=== PATIENT | female | born 1990 | race Asian ===

== ENCOUNTER 2024-07-24 14:28 | Inpatient (IN) ==
[2024-07-24] MEDS ORDERED: LIDOCAINE 1% LOCAL 20 ML VIAL INFIL PRN (17:45)
[2024-07-24] MEDS ORDERED: ACETAMINOPHEN 500 MG TAB PO PRN (17:45)
[2024-07-24] MEDS ORDERED: CALCIUM CARBONATE 500 MG CHEWABLE TAB PO PRN (17:45)
[2024-07-24] MEDS ORDERED: OXYTOCIN 30 UNITS/NSS 30 UNITS/500 ML BAG IV PRN (17:45)
[2024-07-24] MEDS: LACTATED RINGER'S 1,000 ML IV PRN (18:01)
[2024-07-24] MEDS: BUTORPHANOL TARTRATE 1 MG/ML VIAL IV ONE (18:04)
[2024-07-24 18:26] LABS: Hematocrit (blood only) 33.8 % (37.0-47.0); Hemoglobin 11.6 g/dl (12.0-16.0); Mean Corpuscular Hemoglobin 31.1 pg (25.0-34.0); Mean Corpuscular Hgb Conc 34.3 g/dL (32.0-36.0); Mean Corpuscular Volume 90.6 fL (80.0-100.0); Mean Platelet Volume 10.4 fL (9.4-12.4); Platelet Count 206 K/uL (130-400); RDW Coefficient of Variation 12.5 % (11.5-14.5); RDW Standard Deviation 41.5 fL (36.4-46.3); Red Blood Count 3.73 M/uL (4.20-5.40); White Blood Count 9.96 K/ul (4.8-10.8)
--- NOTE | 2024-07-24 19:17 | History & Physical Report ---
Date of Service July 24, 2024 Assessment & Plan (1) Gestational diabetes: Plan: Nena is a 34-year-old G1, P0 currently at 39 weeks 2 days gestational age presents in labor. 1. Fetus: Category 1 tracing 2. Labor: Progressing spontaneously. Will continue to monitor and will plan for AROM following epidural additional augmentation as needed 3. Vitals within normal limits 4. GBS negative 5. A1 GDM: Blood sugar normal on admission. (2) Supervision of normal first : (3) Active labor: History of Present Illness Primary Care Provider: Ngozi Álvarez MD Nena is a 34-year-old G1, P0 currently at 39 weeks 2 days gestational age presents in early labor. Has noted slow cervical change since early this morning. Has had her cervix checked on several occasions has gone from 2 to 4 cm. Denying leakage of fluid or vaginal bleeding and noting good movement. complicated by diet-controlled gestational diabetes with most recent growth ultrasound showing EFW of the 32nd percentile, AC 20th percentile. Allergies Allergy/AdvReac Type Severity Reaction Status Date / Time house dust Allergy Sneezing Verified 07/24/24 14:52 house dust mite Allergy Sneezing Verified 07/24/24 14:52 Home Medications Medication Instructions Recorded Confirmed Type 21-iron fu-folic acid 1 tab PO DAILY 12/10/23 07/24/24 History [ Complete] breast pump #1 ea 05/08/24 07/24/24 Rx acetone (urine) test (Ketone Urine #50 ea 06/06/24 07/24/24 Rx Test strips) blood sugar diagnostic (OneTouch #150 ea 06/06/24 07/24/24 Rx Verio test strips) blood-glucose meter (OneTouch #1 ea 06/06/24 07/24/24 Rx Verio Reflect Meter) lancets 33 gauge (OneTouch Delica #150 ea 06/06/24 07/24/24 Rx Plus Lancet) Patient History Medical History Varicella vaccination Allergic rhinitis Family history of diabetes mellitus (DM) Surgical History No history of previous surgery Family History Father Diabetes Hypertension Brother Hypertension Denies family history of Ovarian cancer Prostate cancer Myocardial infarction Breast cancer Colorectal cancer Social History (Updated 12/10/23 @ 14:10 by Claudette Catalan) Smoking Status: Never smoker Second Hand Exposure: Yes; Do You Dip or Chew Tobacco: No; Hx Alcohol Use: Yes Hx Substance Use: No Preferred Language: Tajik Communication Ability: Effective 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 Beliefs That Will Affect Care: None marital status: marital status details: Sherry Laws (31) [phone] Current Living Situation: Spouse Current Living Situation Comment: lives with spouse, no pets current occupational status: unemployed How many Children do You have: 0 Other Information That Helps Us Care for You: No Feels Safe at Home: Yes Safety Concerns: Feels Safe At This Time Childhood Exposure to Second-Hand Smoke: Yes Diet: regular caffeine: Yes Dental Care, Regularly: Yes Physical Activity Frequency: Daily Seatbelt Use: always Sunscreen Use: Yes Assistive Devices: None Physical Exam Genitourinary: OB Exam Abdomen: + vertex OB Exam Monitor Tracing: + external FHT monitor used, + external uterine monitor used, + category I and + normal FHT variability Progressed from 2 cm to 4 cm Results & Data Vital Signs (Past 12 Hours) Vital Signs Temp Pulse Resp BP 07/24/24 16:53 36.6 C 85 20 111/68 07/24/24 14:50 36.8 C 88 20 109/67 Code Status & VTE Plan VTE Prophylaxis Plan VTE Prophylaxis will be ordered: No Coding Level of Care Code None Diagnoses Diet controlled gestational diabetes mellitus (GDM) in third trimester O24.410 Gestational diabetes mellitus control: diet-controlled Trimester: third trimester Encounter for supervision of normal first in third trimester Z34.03 Trimester: third trimester Active labor O60.00 (1) Gestational diabetes Gestational diabetes mellitus control: diet-controlled Trimester: third trimester Qualified Code(s): O24.410 - Gestational diabetes mellitus in , diet controlled (2) Supervision of normal first Trimester: third trimester Qualified Code(s): Z34.03 - Encounter for supervision of normal first , third trimester
--- NOTE | 2024-07-24 19:34 | Anesthesiology Consultation ---
Date of Service July 24, 2024 Assessment & Plan (1) Encounter for pre-operative examination: Chart Review Chart Review: Acceptable Risk for Labor Epidural History Height/Weight Height: 5 ft 3 in Weight: 56.699 kg Allergies Allergy/AdvReac Type Severity Reaction Status Date / Time house dust Allergy Sneezing Verified 07/24/24 14:52 house dust mite Allergy Sneezing Verified 07/24/24 14:52 Medications Home Medications Medication Instructions Recorded Confirmed Last Taken 21-iron fu-folic acid 1 tab PO DAILY 12/10/23 07/24/24 07/23/24 08:00 [ Complete] breast pump #1 ea 05/08/24 07/24/24 Unknown acetone (urine) test (Ketone Urine #50 ea 06/06/24 07/24/24 Unknown Test strips) blood sugar diagnostic (OneTouch #150 ea 06/06/24 07/24/24 Unknown Verio test strips) blood-glucose meter (OneTouch #1 ea 06/06/24 07/24/24 Unknown Verio Reflect Meter) lancets 33 gauge (OneTouch Delica #150 ea 06/06/24 07/24/24 Unknown Plus Lancet) Active Medications Generic Name Dose Route Start Last Admin Trade Name Freq PRN Reason Stop Dose Admin Lactated Ringer's 1,000 mls @ 125 mls/hr 07/24/24 17:45 07/24/24 19:03 Lr IV 07/25/24 17:44 999 mls/hr .Q8H PRN Infusion L&D Protocol Protocol Past Medical History Medical History (Updated 07/24/24 @ 19:33 by Jaleel Dyer MD) Gestational diabetes Varicella vaccination Allergic rhinitis Family history of diabetes mellitus (DM) Past Family History Family History Father Diabetes Hypertension Brother Hypertension Denies family history of Ovarian cancer Prostate cancer Myocardial infarction Breast cancer Colorectal cancer Past Surgical History Surgical History No history of previous surgery Social History Smoking Status: Never smoker Do You Dip or Chew Tobacco: No Hx Alcohol Use: Yes Hx Substance Use: No Physical Exam Vital Signs Last Vital Signs Temp 36.6 C 07/24/24 16:53 Pulse 70 07/24/24 19:27 Resp 20 07/24/24 16:53 BP 111/72 07/24/24 19:01 Pulse Ox 99 07/24/24 19:27 Testing Laboratory Results 07/24/24 18:09 07/24/24 18:22 POC Glucose 88
[2024-07-24] MEDS: fentaNYL citrate PF 100 MCG/2 ML VIAL ONE (19:56)
[2024-07-24] MEDS: BUPIVACAINE 0.25% PF 30 ML VIAL ONE (19:56)
[2024-07-24] MEDS: LIDOCAINE 2%/EPINEPHRINE 1:200,000 20 ML PF ONE (19:56)
[2024-07-24] MEDS ORDERED: ONDANSETRON INJ 2 MG/ML 2 ML VIAL IV PRN (20:00)
[2024-07-24] MEDS ORDERED: BUPIVACAINE 0.25% PF 30 ML VIAL EPI PRN (20:00)
[2024-07-24] MEDS ORDERED: NALOXONE HCL 0.4 MG/1 ML VIAL/CARP IV PRN (20:00)
[2024-07-24] MEDS ORDERED: fentANYL 2 MCG/ML BUPIVacaine 0.125%-NSS 100ML BAG EPI PRN (20:00)
[2024-07-24] MEDS ORDERED: ePHEDrine sulfate 50 MG/ML AMP IV PRN (20:00)
[2024-07-24] MEDS ORDERED: LIDOCAINE 2% MPF LOCAL 5 ML VIAL EPI PRN (20:00)
[2024-07-24] MEDS ORDERED: NALOXONE HCL 1 MG in SODIUM CHLORIDE 0.9% 1,000 ML IV PRN (20:00)
[2024-07-24] MEDS ORDERED: SODIUM CHLORIDE 0.9% PF INJ 10 ML VIAL EPI PRN (20:00)
[2024-07-24] MEDS ORDERED: ROPIVACAINE 0.5% PF 5 MG/ML 20 ML VIAL EPI PRN (20:00)
[2024-07-24] MEDS ORDERED: fentaNYL citrate PF 100 MCG/2 ML VIAL EPI PRN (20:00)
[2024-07-24] MEDS: fentANYL 2 MCG/ML BUPIVacaine 0.125%-NSS 100ML BAG ONE (20:02)
--- NOTE | 2024-07-24 20:27 | Labor Progress Brief Note ---
Date of Service July 24, 2024 Subjective Reason For Note: Routine Evaluation Assessment & Plan (1) Gestational diabetes: Plan: Nena is a 34-year-old G1, P0 currently at 39 weeks 2 days gestational age presents in labor. 1. Fetus: Category 1 tracing 2. Labor: Progressing spontaneously. AROM at 2019 3. Vitals within normal limits 4. GBS negative 5. A1 GDM: Blood sugar normal on admission. Gestational diabetes mellitus control: diet-controlled Trimester: third trimester Qualified Code(s): O24.410 - Gestational diabetes mellitus in , diet controlled (2) Supervision of normal first : Trimester: third trimester Qualified Code(s): Z34.03 - Encounter for supervision of normal first , third trimester (3) Active labor: Admission and Anticipated Discharge Date Admission Date: July 24, 2024 Physical Exam Genitourinary: Manual OB Exam: + cervical dilation (4-5), + cervical effacement 80%, + station -1 and + amniotic fluid bloody OB Exam Monitor Tracing: + external FHT monitor used, + external uterine monitor used, + category I and + normal FHT variability Results & Data Vital Signs (Past 12 Hours) Vital Signs Temp Pulse Resp BP Pulse Ox 07/24/24 20:21 98 07/24/24 20:21 70 07/24/24 20:21 75 108/60 07/24/24 20:19 67 115/59 L 07/24/24 20:17 69 118/64 07/24/24 20:16 71 100 07/24/24 20:15 80 119/63 07/24/24 20:13 73 111/57 L 07/24/24 20:11 68 116/60 99 07/24/24 20:09 74 107/59 L 07/24/24 20:08 73 108/61 07/24/24 20:06 87 99 07/24/24 20:05 71 109/61 07/24/24 20:03 78 114/66 07/24/24 20:01 82 111/67 99 07/24/24 19:59 86 113/70 07/24/24 19:57 63 112/72 07/24/24 19:56 69 99 07/24/24 19:55 76 110/75 07/24/24 19:51 78 100 07/24/24 19:46 85 100 07/24/24 19:42 75 122/85 07/24/24 19:41 86 94 07/24/24 19:32 70 98 07/24/24 19:27 70 99 07/24/24 19:22 72 99 07/24/24 19:17 85 98 07/24/24 19:01 82 111/72 07/24/24 16:53 36.6 C 85 20 111/68 07/24/24 14:50 36.8 C 88 20 109/67 Coding Level of Care Code None Diagnoses Diet controlled gestational diabetes mellitus (GDM) in third trimester O24.410 Gestational diabetes mellitus control: diet-controlled Trimester: third trimester Encounter for supervision of normal first in third trimester Z34.03 Trimester: third trimester Active labor O60.00
[2024-07-24] MEDS: SODIUM CHLORIDE 0.9% PF INJ 10 ML VIAL ONE (20:55)
[2024-07-24] MEDS: ePHEDrine sulfate 50 MG/ML AMP ONE (20:55)
[2024-07-24] MEDS: BUPIVACAINE 0.25% PF 30 ML VIAL EPI STA (20:56)
[2024-07-24] MEDS: fentaNYL citrate PF 100 MCG/2 ML VIAL EPI STA (20:58)
[2024-07-24] MEDS: SODIUM CHLORIDE 0.9% PF INJ 10 ML VIAL EPI STA (20:58)
[2024-07-24] MEDS: LIDOCAINE 2%/EPINEPHRINE 1:200,000 20 ML PF EPI STA (20:58)
[2024-07-24] MEDS: OXYTOCIN 30 UNITS/NSS 30 UNITS/500 ML BAG IV PRN (21:51)
--- NOTE | 2024-07-25 02:23 | Anesthesia Procedure Note ---
Date of Service July 25, 2024 Anesthesia Post Epidural Note Vital Signs Vital Signs: Temp Pulse Resp BP Pulse Ox 36.8 C 95 H 18 111/72 99 07/25/24 00:30 07/25/24 02:12 07/25/24 01:00 07/25/24 02:12 07/25/24 01:22 Notes Mental Status: alert / awake / arousable and participated in evaluation Nausea / Vomiting: adequately controlled Pain: adequately controlled Airway Patency, RR, SpO2: stable & adequate BP & HR: stable & adequate Hydration State: stable & adequate Neuraxial Anesthesia: was administered and sensory block is resolving Anesthetic Complications: no major complications apparent Epidural: Removed without complications and With tip intact
[2024-07-25] MEDS ORDERED: OXYTOCIN 30 UNITS/NSS 30 UNITS/500 ML BAG IV PRN (03:24)
[2024-07-25] MEDS ORDERED: HYDROCORTISONE ACETATE 25 MG SUPP PR PRN (03:24)
[2024-07-25] MEDS ORDERED: BENZOCAINE 20% SPRY 85 APPLN/85 GM CAN EXT PRN (03:24)
--- NOTE | 2024-07-25 03:24 | Delivery Summary ---
Vaginal Delivery Summary Date of Service July 25, 2024 Vaginal Delivery Summary and 2nd Degree LAC Patient progressed to 10 stages dilated 100% effaced +2 station pushed intact perineum with epidural anesthesia delivered with viable with weight and Apgars pending. Head delivered without difficulty quickly followed by shoulders and body. was noted to be vigorous upon delivery and a 1 minute delayed cord clamping was initiated. Cord was then double clamped and cut remained on maternal abdomen. Cord blood obtained and attention turned deliver the placenta was delivered intact three-vessel cord gentle cord traction. Inspection of perineum vagina cervix there is noted to be a second-degree perineal laceration and a deep right labial laceration. The deep right labial laceration was repaired in 2 layers using 3-0 Vic[address] in continuous running st itch. The perineal laceration was repaired with 3-0 Vicryl continuous running stitch in a standard crown fashion. Both mother and stable in the immediate post delivery timeframe. Needle sponge and instrument counts correct at the completion of the case. No complications noted and blood loss per QBL. [facility] Vaginal Delivery Charge Delivery Type Details: and 2nd Degree LAC
[2024-07-25] MEDS: PRENATAL VITAMIN 1 TAB PO SCH (07:46)
[2024-07-25] MEDS: DOCUSATE SODIUM 100 MG CAP PO SCH (07:47)
[2024-07-25] MEDS: FERROUS SULFATE 325 MG TAB PO SCH (07:47)
[2024-07-25] MEDS: IBUPROFEN 600 MG TAB PO PRN (11:22)
--- NOTE | 2024-07-26 06:04 | Obstetrical Progress Note ---
Date of Service <Phoebe Lea MD - Last Filed: 07/26/24 07:46> July 26, 2024 Assessment & Plan <Phoebe Lea MD - Last Filed: 07/26/24 07:46> (1) care and examination: PPD#1 s/p at 39+ wga: Stable. Rh+, gbs neg, ri, vitals wnl Continue routine care, ambulation, diet as tolerated Plan for DC tomorrow <Natasha Chavira MD, FACOG - Last Filed: 07/26/24 07:59> (1) care and examination: Subjective <Phoebe Lea MD - Last Filed: 07/26/24 07:46> Patient is a 34yo who is PPD#1 following at 39+ weeks. Abd pain/cramping - mild, well managed on analgesics Voiding w/o issue Tolerating meals Ambulating normally +passing gas, no BM yet Lochia minimal, diminishing Planning to breastfeed. Constitutional: no fever, no chills or no sweats Respiratory: no dyspnea Cardiovascular: no chest pain, no palpitations or no calf pain Breast: no breast pain Gastrointestinal: no nausea or no vomiting Genitourinary (female): no dysuria Neurologic: no headache(s) no changes in vision, no headaches Physical Exam <Phoebe Lea MD - Last Filed: 07/26/24 07:46> General: Alert, oriented. No acute distress. Cardiac: Regular rate and rhythm, no murmurs, rubs, or gallops. Respiratory: Clear to auscultation bilaterally. No increased work of breathing. Symmetrical chest rise. No respiratory distress. Abdomen: Soft, nontender, nondistended. Bowel sounds present. Uterus: Uterine fundus firm, nontender, palpable 2 cm below the umbilicus. Lower extremities: No lower extremity edema or swelling. No deep calf pain. Results & Data <Phoebe Lea MD - Last Filed: 07/26/24 07:46> Vital Signs (Past 12 Hours) Vital Signs Temp Pulse Resp BP 07/26/24 01:00 36.9 C 72 18 97/59 L 07/25/24 20:43 36.9 C 90 18 100/60 Supervising Physician <Natasha Chavira MD, FACOG - Last Filed: 07/26/24 07:59> Co-Signing Physician Notes Resident Physician Supervision Note: I interviewed and examined the patient. Discussed with Dr. Lea and agree with findings and plan as documented in the note. Any exceptions or clarifications are listed here: Doing well. Routine care. Working on breast feeding. Probable d/c tomorrow. First baby. Documented By: Natasha Chavira MD, FACOG Resident Activity Tracking <Phoebe Lea MD - Last Filed: 07/26/24 07:46> Resident Involvement: Resident Care Provided Care Provided: Adult Hospital Medicine
[2024-07-26] MEDS: DIPHTHER/TETAN/PERTUS Vaccine (Tdap, Adol/Adult) 0.5mL IM ONE (06:41)
[2024-07-26] MEDS: bisacodyL 5 MG TABEC PO SCH (19:30)
[2024-07-26 20:39] VITALS: TEMP 98.2
[2024-07-26] MEDS: ACETAMINOPHEN 325 MG TAB PO PRN (20:46)
[2024-07-27] MEDS ORDERED: bisacodyL 10 MG SUPP PR PRN (03:24)
[2024-07-27 07:57] VITALS: BP 99/64; PULSE 79; RESP 16; O2SAT 98
--- NOTE | 2024-07-27 10:59 | Obstetrical Progress Note ---
Date of Service July 27, 2024 Assessment & Plan (1) care and examination: satisfactory recovery will discharge today follow up in 6 weeks Subjective Ambulation: ambulating normally Voiding: no voiding problems Passing Gas:: Yes Diet Tolerance:: regular diet Lochia:: Small Feeding Type:: breast feeding still having some pain from perineal laceration but improving. minimal cramping Review of Systems All systems reviewed & are unremarkable except as noted in HPI & below Physical Exam Constitutional WD/WN, vitals as above Psychiatric A+Ox3, euthymic affect Genitourinary OB Exam Abdomen: + fundal height Fundus: + firm and + relation to umbilicus (2 belowU) Results & Data Vital Signs (Past 12 Hours) Vital Signs Temp Pulse Resp BP Pulse Ox O2 Del Method 07/27/24 10:40 98.2 F 79 16 99/64 L 98 07/27/24 07:30 98.2 F 79 16 99/64 L 98 Room Air 07/27/24 01:15 98.2 F 68 18 102/67 97 Room Air
== END 2024-07-27 12:45 | disposition home or self-care (01) | DRG 807 ==
LOC: OPB 14:28 → 4S1 14:46 → 4E2 07-25 05:01